=== PATIENT | female | born 1985 | race African-American/Black ===

== ENCOUNTER 2017-05-16 08:15 | Emergency (ER) | payer OTHER, MEDICAID ==
[~2017-05-16] VITALS: Ht 167.6 cm; Wt 61.5 kg
[~2017-05-16 08:15] MED LIST: DOXY100C PO; METR-1 PO
[2017-05-16 08:16] VITALS: BP 145/92; PULSE 118; RESP 18; TEMP 98.2; O2SAT 100
[2017-05-16] MEDS ORDERED: ALBU.5I NEB (09:07)
[2017-05-16] MEDS ORDERED: DICY10CA12 PO (09:07)
[2017-05-16 09:54] LABS: BILIRUBIN, URINE NEG (NEG); BLOOD, URINE NEG (NEG); GLUCOSE,URINE NEG (NEG); KETONE, URINE NEG (NEG); NITRITE,URINE NEG (NEG); PH, URINE 7.5 (5.0-8.5); SQUAMOUS EPITHELIAL CELL URINE 2 /hpf (0-5); URINE COLOR LIGHT-YELLOW (YELLW/STRAW); URINE LEUKOCYTE ESTERASE NEG (NEG)
[2017-05-16] MEDS ORDERED: METR-1 PO (10:12)
--- NOTE | 2017-05-16 10:12 | PD ---
HPI Chief Complaint: Abdominal Pain Time Seen by Provider: 09:06 Travel History International Travel<30 days: No Contact w/Intl Traveler<30days: No Traveled to known affect area: No History of Present Illness HPI Patient is a 31 year old female who comes in complaining of lower abdominal pain. She says she also has foul odor from her vagina. She reports having unprotected sex and she is concerned about having a bacterial infection. She denies fever or chills. She denies nausea or vomiting. She denies dysuria. She has not taken anything for her symptoms. Severity is mild. PFSH Past Medical History Anemia: Yes Asthma: Yes Diminished Hearing: No Respiratory: Yes (ASTHMA) Immunizations Current: No Influenza Vaccination: No ?: Unknown : 4 Para: 4 Miscarriage: 0 : 0 Tubal Ligation: Yes Past Surgical History Abdominal Surgery: Yes Section: Yes (x4) Gynecologic Surgery: Yes Social History Alcohol Use: No Tobacco Use: No Substance Use: No Allergies-Medications (Allergen,Severity, Reaction): Coded Allergies: No Known Allergies (Verified Adverse Reaction, Unknown, 05/16/17) Reported Meds & Prescriptions Reported Meds & Active Scripts Active Reported Albuterol Neb (Albuterol Sulfate) 2.5 Mg/0.5 Ml Neb 2.5 Mg NEB Q4HR NEB PRN Note: The Albuterol Sulfate Inhalation Solution is concentrated and must be diluted. Read complete instructions carefully before using. Dicyclomine (Dicyclomine HCl) 10 Mg Cap 10 Mg PO TID Review of Systems General / Constitutional: No: Fever, Chills HENT: No: Headaches, Lightheadedness Cardiovascular: No: Chest Pain or Discomfort Respiratory: No: Shortness of Breath Gastrointestinal: Positive: Abdominal Pain, No: Nausea, Vomiting Genitourinary: Positive: Discharge Musculoskeletal: No: Myalgias Skin: No Rash, No Itching Neurologic: No: Weakness, Dizziness Physical Exam Narrative GENERAL: Awake and alert, in no acute distress. SKIN: Focused skin assessment warm/dry. No wounds or signs of infection. HEAD: Atraumatic. Normocephalic. EYES: Pupils equal and round. No scleral icterus. ENT: Mucous membranes pink and moist. CARDIOVASCULAR: Regular rate and rhythm. No murmur appreciated. RESPIRATORY: No accessory muscle use. Clear to auscultation. Breath sounds equal bilaterally. GASTROINTESTINAL: Abdomen soft, non-tender, nondistended. : Exam performed in the presence of a female nurse. No cervical lesions. Thick white discharge present. No CMT. NEUROLOGICAL: Awake and alert. No obvious cranial nerve deficits. Motor grossly within normal limits. Normal speech. Data Data Last Documented VS Vital Signs Date Time Temp Pulse Resp B/P (MAP) Pulse Ox O2 Delivery O2 Flow Rate FiO2 05/16/17 08:16 98.2 118 18 145/92 (109) 100 Room Air Orders Orders Urinalysis - C+S If Indicated (05/16/17 09:10) Wet Prep Profile (05/16/17 09:10) Gc And Chlamydia Pcr (05/16/17 09:10) Labs Laboratory Tests Test 05/16/17 09:30 Urine Color LIGHT-YELLOW Urine Turbidity CLEAR Urine pH 7.5 Urine Specific [place] 1.009 Urine Protein NEG mg/dL Urine Glucose (UA) NEG mg/dL Urine Ketones NEG mg/dL Urine Occult Blood NEG Urine Nitrite NEG Urine Bilirubin NEG Urine Urobilinogen LESS THAN 2.0 MG/DL Urine Leukocyte Esterase NEG Urine RBC LESS THAN 1 /hpf Urine WBC LESS THAN 1 /hpf Urine Squamous Epithelial Cells 2 /hpf Microscopic Urinalysis Comment CULT NOT INDICATED Clue Cells (Wet Prep) PRESENT Vaginal Trichomonas (Wet Prep) NONE SEEN Vaginal Yeast (Wet Prep) NONE SEEN MDM Medical Decision Making Medical Screen Exam Complete: Yes Emergency Medical Condition: Yes Medical Record Reviewed: Yes Differential Diagnosis BV vs UTI vs gc/chlamydia Narrative Course Patient is a 31 year old female who comes in complaining of foul smelling discharge and lower abdominal pain. Exam shows a thick white discharge. Wet prep is positive for clue cells. She will be discharged with a prescription for Flagyl. Advised to avoid alcohol while taking the medication. Advised to follow up with gynecology. Advised to return to the ED as needed for any worsening symptoms. Diagnosis Primary Impression: Bacterial vaginosis Patient Instructions: Bacterial Vaginosis (ED), General Instructions Additional Instructions: Follow-up with gynecology. Take all of your antibiotic. Avoid alcohol while taking the antibiotic as it will make you violently ill. Return to the ED as needed for any worsening symptoms. Scripts Metronidazole (Flagyl) 500 Mg Tab 500 MG PO TID for Infection for 7 Days, TAB 0 Refills Prov: Edie Sandoval MD 05/16/17 Disposition: 01 DISCHARGE HOME Condition: Stable Edie Sandoval MD May 16, 2017 10:12
== END 2017-05-16 10:26 | disposition home or self-care (01) ==
LOC: NEPD 08:15
DX: N76.0 Acute vaginitis (principal); B96.89 Other specified bacterial agents as the cause of diseases classified elsewhere
CPT/HCPCS: 81001; 87210; 87491; 87591; 99283